=== PATIENT | male | born 1935 | race Hispanic/Latino ===

== ENCOUNTER 2020-01-14 06:54 | Inpatient (IN) | payer MEDICARE ==
[2020-01-14] MEDS ORDERED: Bisacodyl 5 MG TAB PO PRN (08:42)
[2020-01-14] MEDS ORDERED: HYDROcodone/Acetaminophen 7.5/325 mg Tablet PO PRN (08:42)
[2020-01-14] MEDS ORDERED: Calcium Carbonate 500 MG ChewTAB PO PRN (08:42)
[2020-01-14] MEDS ORDERED: Dextrose 5% in Water 1,000 ML IV PRN (08:42)
[2020-01-14] MEDS ORDERED: HYDROcodone/Acetaminophen 5/325 mg Tablet PO PRN (08:42)
[2020-01-14] MEDS ORDERED: Ondansetron PF 4 MG/2 ML Vial IVP PRN (08:42)
[2020-01-14] MEDS ORDERED: Acetaminophen 325 MG TAB PO PRN (08:42)
[2020-01-14] MEDS ORDERED: HumaLOG 300 UNITS/3 ML VIAL SC PRN ×2 (08:42)
[2020-01-14] MEDS ORDERED: Dextrose 50% Abboject 50 ML SYRINGE SLOW IVP PRN (08:42)
[2020-01-14] MEDS ORDERED: cefTRIAXone Sodium 2,000 MG in Syringe 0 ML IVPB SCH (08:45)
[2020-01-14] MEDS ORDERED: Benzonatate 100 MG CAP PO PRN (08:45)
[2020-01-14] MEDS ORDERED: diphenhydrAMINE 25 MG CAP PO PRN (08:45)
[2020-01-14] MEDS ORDERED: Docusate 100 MG CAP PO PRN (08:45)
[2020-01-14] MEDS ORDERED: Labetalol HCl 100 MG/20 ML VIAL SLOW IVP PRN (08:45)
[2020-01-14] MEDS ORDERED: Melatonin 3 MG TAB PO PRN (08:45)
[2020-01-14 09:36] LABS: Troponin I 0.087 ng/mL (< 0.028)
[2020-01-14] MEDS ORDERED: Iopamidol 370 76% 100 ML VIAL ONE (09:43)
--- NOTE | 2020-01-14 11:01 | CT ---
CT PULMONARY ANGIOGRAM WITH IV CONTRAST AND 3D POSTPROCESSING: Date: 01/14/2020 HISTORY: Shortness of breath. FINDINGS: There is good contrast opacification of the pulmonary arterial vasculature without filling defects to suggest pulmonary embolism. There are vascular calcifications without aneurysmal dilatation of the t horacic aorta. Small bilateral pleural effusions are present. There is patchy air space disease in th e lungs bilaterally. Degenerative changes are present in the spine. Prominent mediastinal lymph nodes are seen measuring up to 9.0 mm. Upper abdominal tomograms demonstrate calcified gallstones. IMPRESSION: 1. No CT evidence of pulmonary embolism. 2. Bilateral pulmonary infiltrates with small pleural effusions. 3. Cholelithiasis. POS: [facility]
[2020-01-14] MEDS: Famotidine 20 MG TAB PO SCH ×2 (12:03→20:17)
[2020-01-14] MEDS: cefTRIAXone\\ROCEPHIN 2 GM in Sodium Chloride 0.9% 100 ML IVPB SCH (12:04)
[2020-01-14] MEDS: Sodium Chloride 0.9% 1,000 ML IV SCH (12:04)
[2020-01-14 12:50] LABS: Troponin I 0.042 ng/mL (< 0.028)
[2020-01-14 13:44] VITALS: BMI 27.3
[2020-01-14] MEDS: Azithromycin 500 MG in Sodium Chloride 0.9% 250 ML 250 ML IVPB SCH (13:50)
--- NOTE | 2020-01-14 14:15 | PDOC.HHP ---
Hospitalist HPI - History of Present Illness Shortness of breath History of Present Illness: 84-year-old gentleman with past medical history of coronary artery disease with coronary artery bypass grafting roughly 20 years ago, diabetes mellitus, hypertension, hyperlipidemia, BPH, and peripheral arterial disease presents with shortness of breath. I called the patient son Tomy at [phone] and discuss the case at length, time was given for questions and all questions are answered in detail. At the time when I evaluated the patient in the emergency department he is lethargic, diaphoretic, and speaking mainly in simple one word responses though they are not accurate. Patient with altered mental status had CT scan of the brain, this was negative for acute intracranial pathology. Toxic metabolic encephalopathy present on admission. Patient diagnosed with sepsis present on admission as he was reportedly having fevers and transferring facility of 101. Patient has tachypnea and audible wet sounding lungs even without a stethoscope. The patient son states that for the past few days the patient has felt weak, somnolent, having trouble breathing, and a cough. Patient was at [facility] just a few days ago for low blood sugars. Patient with generalized weakness has had episodes of difficulty walking and his son states that he has had two minor falls where his son had to catch him. The patient is normally a resident of [place] and was there roughly 2 weeks ago, he is here visiting his son. The patient son adamantly denies that he has had any sick contacts, he denies any exposure to Covid 19. He denies any contacts of people who have been affected by this. Patient with chest x-ray showing pulmonary edema and a BMP greater than 2000. Patient diagnosed with acute congestive heart failure present on admission. Echocardiogram and cardiology consult have been requested. Patient was also elevated D dimer, a follow-up CT angiography of the chest was negative for pulmonary embolism. Admitted to the medical unit telemetry for close management. Hospitalist ROS - Review of Systems All other systems reviewed; all pertinent +/- noted in HPI/Subj - Medication Medications: Active Medications Generic Name Dose Route Start Last Admin Trade Name Freq PRN Reason Stop Dose Admin Famotidine 20 mg 01/14/20 09:00 01/14/20 12:03 Pepcid PO 20 mg BID [place] Administration Azithromycin 500 mg/ Sodium 250 mls @ 250 mls/hr 01/14/20 11:00 01/14/20 13: 50 Chloride IVPB 250 mls Q24HR [place] Administration Sodium Chloride 1,000 mls @ 75 mls/hr 01/14/20 09:15 01/14/20 12:04 Normal Saline 0.9% IV 1,000 mls .[id number] [place] Administration Ceftriaxone Sodium 2 gm/ 100 mls @ 200 mls/hr 01/14/20 12:00 01/14/20 12:04 Sodium Chloride IVPB 100 mls Q24HR [place] Administration Hospitalist History - Past Medical History Source: patient, family, old records Cardiac: reports: AFIB, CAD, CHF, HTN Pulmonary: reports: high cholesterol Endocrine: reports: Diabetes - Past Surgical History Past Surgical History: reports: CABG, Other (sent for PAD in the leg) - Family History Family History: reports: hypertension - Social History Smoking Status: Current every day smoker Tobacco Type: cigarettes Alcohol: reports: None Drugs: reports: none Living Situation: With Family Domestic Violence: Negative Activity level: independent ambulation - Exam General Appearance: ill appearing Eye: PERRL ENT: normocephalic atraumatic, moist mucosa Neck: supple, symmetric, no JVD, no thyromegaly Heart: no murmur, no gallops, no rubs, normal peripheral pulses Respiratory: no ronchi, normal chest expansion, no tachypnea, rales (moderate), wheezes Gastrointestinal: soft, non-tender, non-distended, no guarding, no rigidity Extremities: 1+ LE edema Skin: no rashes Neurological: cranial nerve grossly intact, no focal deficits Musculoskeletal: generalized weakness Psychiatric: oriented to person Hospitalist Results - Labs Lab results: Troponin I 0.042 ng/mL (< 0.028) H 01/14/20 12:08 - Radiology Interpretation Chest x-ray Status: image reviewed by wy Hospitalist H&P A/P - Problem (1) Acute respiratory failure Code(s): J96.00 - ACUTE RESPIRATORY FAILURE, UNSP W HYPOXIA OR HYPERCAPNIA Status: Acute (2) Acute CHF Code(s): I50.9 - HEART FAILURE, UNSPECIFIED Status: Acute (3) Pneumonia Code(s): J18.9 - PNEUMONIA, UNSPECIFIED ORGANISM Status: Acute (4) HARLEY (acute kidney injury) Code(s): N17.9 - ACUTE KIDNEY FAILURE, UNSPECIFIED Status: Acute (5) CAD (coronary artery disease) Code(s): I25.10 - ATHSCL HEART DISEASE OF [place] CORONARY ARTERY W/O ANG PCTRS Status: Acute (6) Hx of CABG Status: Acute (7) HTN (hypertension) Code(s): I10 - ESSENTIAL (PRIMARY) HYPERTENSION Status: Acute (8) HLD (hyperlipidemia) Code(s): E78.5 - HYPERLIPIDEMIA, UNSPECIFIED Status: Acute (9) Afib Code(s): I48.91 - UNSPECIFIED ATRIAL FIBRILLATION Status: Acute (10) DM (diabetes mellitus) Code(s): E11.9 - TYPE 2 DIABETES MELLITUS WITHOUT COMPLICATIONS Status: Acute (11) Sepsis Code(s): A41.9 - SEPSIS, UNSPECIFIED ORGANISM Status: Acute - Plan Plan: Plan: admit to medical unit with telemetry cardiology consultation, recommendations appreciated congestive heart failure, present on admission afib, full dose lovenox echocardiogram gentle IV fluid resuscitation in the setting of sepsis, flush IV contrast from CTA - Will stop in the next 24-48 hours acute kidney injury, present on admission, consider nephrology consult sepsis, present on admission rule out Covid 19, though this is less likely is the patient has not had adequate exposure aside from traveling from [place] which is a relatively low prevalence area pulmonary specific antibiotics breathing treatments continue home medications as able blood pressure control blood sugar control G.I. prophylaxis DVT prophylaxis
[2020-01-14] MEDS: Furosemide 20 MG/2 ML VIAL SLOW IVP SCH (15:26)
[2020-01-14] MEDS: Heparin 5,000 UNITS/ML VIAL SC SCH ×2 (15:26→20:17)
[2020-01-14] MEDS ORDERED: FLU VACC TS2019-20(65YR UP)/PF 180 MCG/0.5 ML SYRINGE IM ONE (15:30)
--- NOTE | 2020-01-14 16:31 | CON ---
DATE OF CONSULTATION: HISTORY OF PRESENT ILLNESS: The patient is an 84-year-old gentleman with a history of coronary artery disease, who presented with increasing dyspnea and fever. The patient has a history of coronary artery bypass graft surgery x3. He states this was many years ago. The patient presented with increasing dyspnea and a cough. The patient denied having any chest discomfort. PAST MEDICAL HISTORY: 1. Coronary artery disease. 2. Hypertension. 3. Congestive heart failure. PAST SURGICAL HISTORY: Coronary artery bypass graft surgery. SOCIAL HISTORY: The patient continues to abuse tobacco. FAMILY HISTORY: Positive family history of coronary artery disease. PHYSICAL EXAMINATION: GENERAL: This is an elderly gentleman. VITAL SIGNS: Blood pressure of 139/67. LABORATORY RESULTS: Sodium is 131, potassium 4.9, chloride 96, bicarbonate 24, BUN 23, and creatinine of 1.4. Troponin was 0.05. BNP was 2163. White blood cell count is 9.1, hemoglobin 13.1, hematocrit 39.4, and platelets are 202. Chest x-ray revealed mild pulmonary vascular congestion. CT scan revealed no evidence of a pulmonary embolus. IMPRESSION: 1. Congestive heart failure, probably diastolic dysfunction. 2. History of coronary artery bypass graft surgery. 3. Atrial fibrillation, atrial flutter. 4. History of peripheral vascular disease. 5. Tobacco abuse. PLAN: This gentleman has mild congestive heart failure. He is being diuresed with Lasix. From a cardiac standpoint, we will check his echocardiogram. We will follow this patient with you through his hospitalization. The patient does have an elevated CHADS-VASc score and probably be on anticoagulation. We will follow this patient with you. Job ID: [id number] [facility]
[2020-01-14] MEDS: Enoxaparin Sodium 80 MG/0.8 ML SYRINGE SC SCH (20:17)
[2020-01-14] MEDS: Tamsulosin HCl 0.4 MG CAP PO SCH (20:18)
[2020-01-15] MEDS: clonazePAM 0.5 MG TAB PO PRN ×2 (00:42→21:11)
[2020-01-15 05:52] LABS: Anion Gap 15 mmol/L (10-20); BUN (Urea Nitrogen) 22 mg/dL (8.4-25.7); Calc. Creatinine Clearance 48 mL/min (70-130); Calcium 9.6 mg/dL (7.8-10.44); Carbon Dioxide 28 mmol/L (23-31); Chloride 99 mmol/L (98-107); Estimated GFR-MDRD 58; Sodium 138 mmol/L (136-145)
[2020-01-15] MEDS: Furosemide 20 MG/2 ML VIAL SLOW IVP SCH ×2 (05:56→15:44)
[2020-01-15] MEDS: Levothyroxine Sodium 100 MCG TAB PO SCH (05:57)
[2020-01-15] MEDS: Sodium Chloride 0.9% 1,000 ML IV SCH (05:57)
[2020-01-15 06:01] LABS: Band 6 % (5-11); Eosinophils 2 % (0-10); Glucose 59 mg/dL (83-110); Hemoglobin 13.1 g/dL (14.0-18.0); Lymphocytes 10 % (21-51); MDiff Complete? YES; Mean Corpuscular HGB CONC 33.5 g/dL (32.0-36.0); Mean Corpuscular Hemoglobin 31.7 pg (27.0-31.0); Mean Corpuscular Volume 94.7 fL (78.0-98.0); Monocytes 10 % (0-10); Neutrophil 72 % (42-75); Platelet Count 239 thou/uL (130-400); Platelet Morphology Comment Appears Adequate; RBC Morphology Normal; Red Blood Cell (RBC) Count 4.13 mill/uL (4.70-6.10); White Blood Cell (WBC) Count 7.7 thou/uL (4.8-10.8)
[2020-01-15] MEDS ORDERED: Prevnar 13-Val Conj/PF 0.5 ML SYRINGE IM ONE (09:00)
[2020-01-15] MEDS ORDERED: Atenolol 50 MG TAB PO SCH (09:00)
[2020-01-15 09:25] LABS: Hemoglobin 12.6 g/dL (14.0-18.0); Platelet Count 226 thou/uL (130-400)
[2020-01-15] MEDS: Enoxaparin Sodium 80 MG/0.8 ML SYRINGE SC SCH ×2 (11:19→21:11)
[2020-01-15] MEDS: Famotidine 20 MG TAB PO SCH ×2 (11:19→21:11)
[2020-01-15] MEDS: Clopidogrel Bisulfate 75 MG TAB PO SCH (11:19)
--- NOTE | 2020-01-15 12:52 | PDOC.HOSPP ---
- Subjective Subjective: Seen and examined. Appears much more comfortable today. Breathing on room air. Talking in full sentences. Echocardiogram with diastolic dysfunction, acute diastolic dysfunction present on admission. Afebrile. Minimal cough. Overall he is clinically improving. - Objective Vital Signs & Weight: Vital Signs (12 hours) Temp Pulse Resp BP Pulse Ox 01/15/20 12:00 88 20 148/63 H 98 01/15/20 08:47 96.6 F L 85 18 140/65 97 01/15/20 03:55 97 F L 111 H 20 150/73 H 94 L Weight Admit Weight 164 lb Weight 164 lb 4.8 oz I&O: 01/14/20 01/15/20 01/16/20 06:59 06:59 06:59 Intake Total 420 Output Total 450 Balance -30 Result Diagrams: 01/15/20 08:52 01/15/20 08:52 Additional Labs: Accuchecks 01/15/20 01/15/20 01/15/20 11:04 07:21 06:03 POC Glucose 183 H 148 H 51 L* 01/14/20 01/14/20 20:55 17:33 POC Glucose 142 H 97 Radiology Reviewed by me: Yes Hospitalist ROS - Review of Systems All other systems reviewed; all pertinent +/- noted in HPI/Subj - Medication Medications: Active Medications Generic Name Dose Route Start Last Admin Trade Name Freq PRN Reason Stop Dose Admin Clonazepam 0.5 mg 01/14/20 14:47 01/15/20 00:42 Clonazepam PO 0.5 mg TID PRN Administration Anxiety Clopidogrel Bisulfate 75 mg 01/15/20 09:00 01/15/20 11:19 Plavix PO 75 mg DAILY [place] Administration Enoxaparin Sodium 80 mg 01/14/20 21:00 01/15/20 11:19 Lovenox SC 80 mg 0900,2100 [place] Administration Famotidine 20 mg 01/14/20 09:00 01/15/20 11:19 Pepcid PO 20 mg BID [place] Administration Furosemide 20 mg 01/14/20 14:00 01/15/20 05:56 Lasix SLOW IVP 20 mg 0600,1400 [place] Administration Azithromycin 500 mg/ Sodium 250 mls @ 250 mls/hr 01/14/20 11:00 01/14/20 13: 50 Chloride IVPB 250 mls Q24HR [place] Administration Ceftriaxone Sodium 2 gm/ 100 mls @ 200 mls/hr 01/14/20 12:00 01/14/20 12:04 Sodium Chloride IVPB 100 mls Q24HR [place] Administration Levothyroxine Sodium 100 mcg 01/15/20 06:00 01/15/20 05:57 Synthroid PO 100 mcg 0600 [place] Administration Sodium Chloride 10 ml 01/14/20 21:00 01/14/20 20:18 Flush - Normal Saline IVF 10 ml Q12HR [place] Administration Tamsulosin HCl 0.4 mg 01/14/20 21:00 01/14/20 20:18 Flomax PO 0.4 mg HS [place] Administration - Exam General Appearance: NAD, awake alert Eye: anicteric sclera ENT: normocephalic atraumatic, moist mucosa Neck: supple, symmetric, no lymphadenopathy Heart: no murmur, no gallops, no rubs, irregular Respiratory: no ronchi, normal chest expansion, rales, wheezes Gastrointestinal: soft, non-tender, no guarding, no rigidity Extremities: 1+ LE edema Skin: no lesions, no rashes Neurological: cranial nerve grossly intact, no focal deficits Musculoskeletal: generalized weakness Psychiatric: A&O x 3 Hosp A/P (1) Acute respiratory failure Code(s): J96.00 - ACUTE RESPIRATORY FAILURE, UNSP W HYPOXIA OR HYPERCAPNIA Status: Acute (2) Acute CHF Code(s): I50.9 - HEART FAILURE, UNSPECIFIED Status: Acute (3) Pneumonia Code(s): J18.9 - PNEUMONIA, UNSPECIFIED ORGANISM Status: Acute (4) HARLEY (acute kidney injury) Code(s): N17.9 - ACUTE KIDNEY FAILURE, UNSPECIFIED Status: Acute (5) CAD (coronary artery disease) Code(s): I25.10 - ATHSCL HEART DISEASE OF [place] CORONARY ARTERY W/O ANG PCTRS Status: Acute (6) Hx of CABG Status: Acute (7) HTN (hypertension) Code(s): I10 - ESSENTIAL (PRIMARY) HYPERTENSION Status: Acute (8) HLD (hyperlipidemia) Code(s): E78.5 - HYPERLIPIDEMIA, UNSPECIFIED Status: Acute (9) Afib Code(s): I48.91 - UNSPECIFIED ATRIAL FIBRILLATION Status: Acute (10) DM (diabetes mellitus) Code(s): E11.9 - TYPE 2 DIABETES MELLITUS WITHOUT COMPLICATIONS Status: Acute (11) Sepsis Code(s): A41.9 - SEPSIS, UNSPECIFIED ORGANISM Status: Acute - Plan Plan: medical unit with telemetry cardiology consultation, recommendations appreciated acute diastolic congestive heart failure, present on admission atrial fibrillation, on full dose Lovenox, transition to oral and coagulation as able echocardiogram noted Cardiomyopathy regimen IV Lasix for congestive heart failure CT angiography of the chest negative for acute pulmonary embolism acute kidney injury, present on admission, improved sepsis, present on admission rule out Covid 19, though this is less likely as the patient has not had exposure aside from traveling from [place] which is a relatively low prevalence area pulmonary specific antibiotics breathing treatments continue home medications as able short acting insulin for glucose control GI prophylaxis DVT prophylaxis, full dose lovenox
[2020-01-15] MEDS: cefTRIAXone\\ROCEPHIN 2 GM in Sodium Chloride 0.9% 100 ML IVPB SCH (13:17)
[2020-01-15] MEDS: Azithromycin 500 MG in Sodium Chloride 0.9% 250 ML 250 ML IVPB SCH (15:18)
[2020-01-15] MEDS: Tamsulosin HCl 0.4 MG CAP PO SCH (21:11)
[2020-01-16] MEDS: Furosemide 20 MG/2 ML VIAL SLOW IVP SCH ×2 (05:16→16:31)
[2020-01-16] MEDS: Levothyroxine Sodium 100 MCG TAB PO SCH (05:16)
[2020-01-16 08:33] VITALS: TEMP 96
[2020-01-16] MEDS: Clopidogrel Bisulfate 75 MG TAB PO SCH (08:35)
[2020-01-16] MEDS: Famotidine 20 MG TAB PO SCH (08:35)
[2020-01-16] MEDS: Enoxaparin Sodium 80 MG/0.8 ML SYRINGE SC SCH (08:35)
[2020-01-16] MEDS: Azithromycin 500 MG in Sodium Chloride 0.9% 250 ML 250 ML IVPB SCH (12:48)
[2020-01-16] MEDS: cefTRIAXone\\ROCEPHIN 2 GM in Sodium Chloride 0.9% 100 ML IVPB SCH (12:50)
[2020-01-16 16:33] VITALS: BP 142/90
--- NOTE | 2020-01-16 21:57 | DIS ---
DATE OF ADMISSION: 01/14/2020 DATE OF DISCHARGE: 01/16/2020 REASON FOR HOSPITALIZATION: Shortness of breath. SIGNIFICANT FINDINGS: The patient was found to have acute on chronic diastolic congestive heart failure. PROCEDURES PERFORMED AND TREATMENTS RENDERED: The patient was admitted to the medical unit with telemetry for close management. The patient had echocardiogram, please see full report for details, the patient was found to have a preserved ejection fraction of 50% to 55% and diastolic dysfunction. The patient was diagnosed with acute exacerbation of COPD with diastolic dysfunction, present on admission. The patient having subjective fever and generalized malaise. There was concern for infectious etiology. The patient had a COVID-19 test performed, this was found to be negative. The patient was monitored throughout his hospitalization and he was afebrile throughout his hospitalization. The patient did have chest x-ray findings and CT angiography of the chest, please see full report for details. CT angiography of the chest was negative for acute pulmonary embolism; however, there were bilateral pulmonary infiltrates and small pleural effusions. The patient was placed on pulmonary specific antibiotics for community-acquired pneumonia and he had a good improvement of his respiratory status. The patient was deescalated from oxygen therapy and weaned off from oxygen completely. The patient was evaluated by myself and Cardiology on 01/16/2020, and recommended safe for discharge with close followup in the outpatient setting. CONDITION ON DISCHARGE: Stable. SPECIFIC INSTRUCTIONS FOR THE PATIENT/FAMILY: 1. The patient is recommended to follow up with primary care physician in the next 5 to 7 days. 2. The patient is recommended to follow up with Cardiology in the next 1 to 2 weeks. 3. The patient is recommended to follow up with the coach professional athletes, core placer in the next 2 to 4 weeks. 4. The patient is recommended to take all medications as directed. 5. With the patient having elevated fall risk and unsteadiness on his feet occasionally at times, he was determined by Cardiology not to be a candidate for anticoagulation for his atrial fibrillation. 6. The patient recommended to return to acute care hospital immediately if signs or symptoms return, worsen, or any other new symptoms occur. DISCHARGE MEDICATIONS: 1. Please see full discharge medication list for details. 2. Furosemide 20 mg one tablet p.o. daily. 3. Cefpodoxime 200 mg one tablet p.o. b.i.d. 4. Azithromycin 250 mg one tablet p.o. daily. 5. Tessalon Perles 100 mg p.o. q.4 hours p.r.n. cough or shortness of breath. 6. Tylenol regular strength q.4 hours p.r.n. pain or fever. 7. Clopidogrel 75 mg one tablet p.o. daily. 8. Metformin 500 mg one tablet p.o. b.i.d. 9. Levothyroxine 100 mcg one tablet p.o. daily. 10. Tamsulosin 0.4 mg one tablet p.o. b.i.d. TIME SPENT: Greater than 37 minutes spent coordinating care and discharge process for this patient. Job ID: [id number]
== END 2020-01-16 18:22 | disposition home or self-care (01) | DRG 871 ==
LOC: ERS 06:54 → 2NO 08:45
PROVIDERS: ADMIT Internal Medicine; ATTEND Internal Medicine
PROC: 3E02340 Introduction of Influenza Vaccine into Muscle, Percutaneous Approach (ICD-10-PCS; principal; 2020-01-14)
PROC: 3E0234Z Introduction of Serum, Toxoid and Vaccine into Muscle, Percutaneous Approach (ICD-10-PCS; 2020-01-15)
DX: A41.9 Sepsis, unspecified organism (principal); G92 Toxic encephalopathy; Z23 Encounter for immunization; J96.00 Acute respiratory failure, unspecified whether with hypoxia or hypercapnia; J18.9 Pneumonia, unspecified organism; I50.33 Acute on chronic diastolic (congestive) heart failure; N17.9 Acute kidney failure, unspecified; I42.9 Cardiomyopathy, unspecified; J44.0 Chronic obstructive pulmonary disease with (acute) lower respiratory infection; J44.1 Chronic obstructive pulmonary disease with (acute) exacerbation; N40.0 Benign prostatic hyperplasia without lower urinary tract symptoms; F17.210 Nicotine dependence, cigarettes, uncomplicated; I25.10 Atherosclerotic heart disease of native coronary artery without angina pectoris; E78.5 Hyperlipidemia, unspecified; E11.51 Type 2 diabetes mellitus with diabetic peripheral angiopathy without gangrene; I11.0 Hypertensive heart disease with heart failure; I48.91 Unspecified atrial fibrillation; E78.00 Pure hypercholesterolemia, unspecified; I25.2 Old myocardial infarction; Z95.5 Presence of coronary angioplasty implant and graft; Z95.1 Presence of aortocoronary bypass graft; Z79.02 Long term (current) use of antithrombotics/antiplatelets; Z79.84 Long term (current) use of oral hypoglycemic drugs; Z79.899 Other long term (current) drug therapy
CPT/HCPCS: 36415; 36416; 71275; 80048; 85007; 85027; 87633; 93306; J0456; J0696; J1644; J1650; J1940; J3490; J7050; Q9967; U0001